=== PATIENT | female | born 1970 | race Hispanic/Latino ===

== ENCOUNTER 2017-11-12 17:48 | Emergency (ER) | payer OTHER ==
[2017-11-12 18:04] VITALS: BP 151/91; PULSE 76; TEMP 97.5; O2SAT 98
[2017-11-12 18:16] VITALS: RESP 20
--- NOTE | 2017-11-12 18:56 | ED PDOC ---
HPI: Back Time Seen by Provider: 11/12/17 18:40 Chief Complaint (Nursing): Shortness Of Breath Chief Complaint (Provider): uppper back pain History Per: Patient History/Exam Limitations: no limitations Onset/Duration Of Symptoms: Hrs Current Symptoms Are (Timing): Still Present Quality Of Discomfort: "Pain" Exacerbating Factor(s): Movement, Other (deep breaths) Additional History Per: Patient Additional Complaint(s): 47 y/o female history of hypertension, depression presents with left upper back pain x 7 hours. Associated shortness of breath. Pain worsened by movement and deep breaths, little improvement with Tylenol. Denies fever, cough, congestion , chest pain, palpitations, abdominal pain, leg pain/swelling. Patient with recent travel to [place] and [place] within the last month. Past Medical History Reviewed: Historical Data, Nursing Documentation, Vital Signs Vital Signs: Last Vital Signs Temp 97.5 F L 11/12/17 18:01 Pulse 76 11/12/17 18:01 Resp 20 11/12/17 18:11 BP 151/91 H 11/12/17 18:01 Pulse Ox 98 11/12/17 18:01 - Medical History PMH: HTN - Surgical History Surgical History: Cholecystectomy, - Family History Family History: States: No Known Family Hx - Living Arrangements Living Arrangements: With Family - Social History Current smoker - smoking cessation education provided: Yes Alcohol: Social Drugs: Denies - Home Medications Home Medications: Ambulatory Orders Medication Instructions Recorded Cyclobenzaprine [Cyclobenzaprine 10 mg PO BID PRN #14 tab 11/12/17 HCl] Naproxen [Naprosyn] 500 mg PO Q12 PRN #20 tablet 11/12/17 - Allergies Allergies/Adverse Reactions: Allergies Allergy/AdvReac Type Severity Reaction Status Date / Time shrimp Allergy RASH Verified 11/12/17 18:01 Review of Systems ROS Statement: Except As Marked, All Systems Reviewed And Found Negative Respiratory: Positive for: Shortness of Breath Musculoskeletal: Positive for: Back Pain Physical Exam - Reviewed Nursing Documentation Reviewed: Yes Vital Signs Reviewed: Yes - Physical Exam Appears: Positive for: Well, Non-toxic, No Acute Distress Head Exam: Positive for: ATRAUMATIC, NORMAL INSPECTION, NORMOCEPHALIC Skin: Positive for: Normal Color Eye Exam: Positive for: Normal appearance ENT: Positive for: Normal ENT Inspection Cardiovascular/Chest: Positive for: Regular Rate, Rhythm Respiratory: Positive for: Normal Breath Sounds Gastrointestinal/Abdominal: Positive for: Normal Exam Back: Positive for: Normal Inspection, Muscle Spasm (tender to palpate left tspine paraspinals). Negative for: L CVA Tenderness, R CVA Tenderness, Vertebral Tenderness, Decreased ROM Extremity: Positive for: Normal ROM Neurologic/Psych: Positive for: Alert, Oriented - Laboratory Results Result Diagrams: 11/12/17 19:31 11/12/17 19:31 - ECG ECG: Positive for: Viewed By Me (reviewed by ED attending) ECG Rhythm: Positive for: Sinus Rhythm O2 Sat by Pulse Oximetry: 98 Pulse Ox Interpretation: Normal - Radiology X-Ray: Viewed By Me X-Ray Interpretation: No Acute Disease - Progress ED Course And Treament: labs, ekg, chest xray, IV toradol, PO flexeril On re-eval, patient resting comfortably. Patient educated on findings, discharged with rx naproxen, flexeril. Advised follow up PMD 2-3 days. Return precautions given. Disposition - Clinical Impression Clinical Impression: Upper back pain on left side - Patient ED Disposition Is Patient to be Admitted: No Counseled Patient/Family Regarding: Studies Performed, Diagnosis, Need For Followup - Disposition Disposition: Routine/Home Disposition Time: 21:29 Condition: IMPROVED Prescriptions: Cyclobenzaprine [Cyclobenzaprine HCl] 10 mg PO BID PRN #14 tab PRN Reason: Muscle Spasm Naproxen [Naprosyn] 500 mg PO Q12 PRN #20 tablet PRN Reason: Pain, Moderate (4-7) Instructions: Back Pain (ED) Forms: [facility] (Azeri)
[2017-11-12 19:38] LABS: BASO # 0.1 K/uL (0.0-0.2); BASO % 1.1 % (0.0-2.0); EOS # 0.2 K/uL (0.0-0.7); EOS % 4.4 % (0.0-4.0); HEMATOCRIT 37.7 % (34.0-47.0); LYMPH # 1.6 K/uL (1.0-4.3); MEAN CELL VOLUME 94.8 fl (81.0-99.0); MEAN CORPUSCULAR HEMOGLOBIN 32.1 pg (27.0-31.0); MEAN CORPUSCULAR HGB CONC 33.9 g/dL (33.0-37.0); MEAN PLATELET VOLUME 7.8 fl (7.2-11.7); MONO # 0.6 K/uL (0.0-0.8); MONO % 11.2 % (0.0-10.0); NEUT % 54.3 % (50.0-75.0); NRBC % 0.1 % (0.0-0.0); RED CELL DISTRIBUTION WIDTH 13.4 % (11.5-14.5); WHITE BLOOD COUNT 5.6 K/uL (4.8-10.8)
[2017-11-12 19:46] LABS: ALB/GLOB RATIO 1.3 (1.0-2.1); ALKALINE PHOSPHATASE 51 U/L (38-126); ALT/SGPT 31 U/L (9-52); AST/SGOT 23 U/L (14-36); BILIRUBIN,TOTAL 0.3 mg/dl (0.2-1.3); BLOOD UREA NITROGEN 23 mg/dl (7-17); CALCIUM 9.2 mg/dL (8.4-10.2); CARBON DIOXIDE 24 mmol/L (22-30); CHLORIDE 106 mmol/L (98-107); GFR AFRICAN-AMERICAN > 60; GLUCOSE,RANDOM 105 mg/dL (65-105); POTASSIUM 4.1 MMOL/L (3.6-5.0); SODIUM 139 mmol/l (132-148); TOTAL PROTEIN 7.1 G/DL (6.3-8.2)
--- NOTE | 2017-11-13 07:56 | RAD ---
HISTORY: left upper back pain, sob COMPARISON: Chest radiographs 02/25/2013 TECHNIQUE: Chest PA and lateral FINDINGS: LUNGS: No active pulmonary disease. PLEURA: No significant pleural effusion identified. No pneumothorax apparent. CARDIOVASCULAR: Normal. OSSEOUS STRUCTURES: No significant abnormalities. VISUALIZED UPPER ABDOMEN: LAP band in position once again. OTHER FINDINGS: None. IMPRESSION: No interval acute cardiopulmonary disease appreciated.
== END 2017-11-12 21:51 | disposition home or self-care (01) ==
LOC: H.ER 17:48
DX: M54.9 Dorsalgia, unspecified (principal); F32.9 Major depressive disorder, single episode, unspecified; F17.200 Nicotine dependence, unspecified, uncomplicated
CPT/HCPCS: 71020; 80053; 81025; 85025; 85378; 85610; 85730; 96374; 99283; J1885

== ENCOUNTER 2018-10-06 09:35 | Emergency (ER) | payer OTHER ==
[2018-10-06 09:46] VITALS: BMI 41.8
--- NOTE | 2018-10-06 11:18 | RAD ---
Date of service: 10/06/2018 PROCEDURE: Right Ankle Radiographs. HISTORY: trauma COMPARISON: None available. FINDINGS: BONES: Three views of the right ankle were performed for right ankle pain and trauma. No fracture is seen. No ankle mortise widening is noted. No lytic process is identified. Talar dome is normal in outline. Subtalar joint is unremarkable. Small curvilinear chronic ossification is seen along the posterior tibial plafond region representing prior chronic trauma or ununited ossicle. Calcaneus is intact. Mild soft tissue swelling is seen. JOINTS: See above. SOFT TISSUES: See above. OTHER FINDINGS: None. IMPRESSION: No fracture. Mild soft tissue swelling consistent with ankle sprain.
--- NOTE | 2018-10-06 11:19 | RAD ---
Date of service: 10/06/2018 PROCEDURE: Right Foot Radiographs. HISTORY: trauma COMPARISON: None. FINDINGS: BONES: Three views of the right foot were performed. There is evidence of a fracture of the proximal aspect of the right 5th metatarsal. No other fractures are identified. Mild degenerative changes are identified. JOINTS: Unremarkable. SOFT TISSUES: Mild soft tissue swelling along the lateral foot. OTHER FINDINGS: None. IMPRESSION: Fracture proximal right 5th metatarsal.
[2018-10-06] MEDS ORDERED: Oxycodone/Acetaminophen 5/325 mg Tab PO STA (11:39)
[2018-10-06] MEDS ORDERED: Oxycodone/Acetaminophen 5/325 mg Tab ONE (11:42)
--- NOTE | 2018-10-06 11:51 | CP.PCM.CON ---
History of Present Illness - History of Present Illness History of Present Illness: Podiatry Consult Note: Dr. Campa 48F patient, with PMHx of HTN, seen and evaluated for R foot pain after twisting her ankle yesterday. Patient states that she was walking in high heels last night and rolled her ankle. At that time, she was immediately felt pain to the outside of her foot and to the inside of her ankle. She currently is able to ambulate, however experiences pain when walking. She denies any other pedal complaints at this time. Patient notes that she was a patient of Dr. Cueva in the past. She denies N/V/F/SOB/CP. PMHx: HTN SHx: tobacco use All: NDKA Review of Systems - Review of Systems Review of Systems: As per HPI Past Patient History - Past Social History Smoking Status: Former Smoker - CARDIAC Hx Hypertension: Yes - PSYCHIATRIC Hx Depression: Yes Hx Substance Use: No - SURGICAL HISTORY Hx Section: Yes (x3) Hx Cholecystectomy: Yes Hx Gastric Bypass Surgery: Yes - ANESTHESIA Hx Anesthesia: Yes Hx Anesthesia Reactions: No Meds Home Medications: Home Medication List Medication Instructions Recorded Confirmed Type Tramadol HCl [Ultram] 1 - 2 tab PO BID PRN #14 tablet 10/06/18 Rx Allergies/Adverse Reactions: Allergies Allergy/AdvReac Type Severity Reaction Status Date / Time shrimp Allergy RASH Verified 10/06/18 09:55 Physical Exam - Constitutional Appears: Well, Non-toxic, No Acute Distress - Head Exam Head Exam: ATRAUMATIC, NORMOCEPHALIC - Extremities Exam Additional comments: RLE focused exam Vascular: DP/PT 2/4, CFT <3 seconds to all digits, TG warm to warm, +1 edema noted to medial aspect of ankle joint and base of 5th metatarsal Ortho: Tenderness to palpation of base of R 5th metatarsal, pain with AROM and PROM, MMT 4/5 due to patient guarding Neuro: Gross and protective sensation intact Derm: No open lesions, erythema and ecchymosis noted to lateral aspect of R foot, no clinical signs of infection - Neurological Exam Neurological exam: Alert - Psychiatric Exam Psychiatric exam: Normal Affect, Normal Mood - Skin Skin Exam: Warm Results - Vital Signs Recent Vital Signs: Last Vital Signs Temp 98.5 F 10/06/18 09:46 Pulse 80 10/06/18 09:46 Resp 20 10/06/18 09:46 BP 136/81 10/06/18 09:46 Pulse Ox 97 10/06/18 09:46 Assessment & Plan - Assessment and Plan (Free Text) Assessment: 48F patient, with PMHx of HTN, with R 5th metatarsal base fracture Plan: Patient seen and evaluated with all questions and concerns addressed R ankle and foot x-rays taken; fracture at proximal aspect of 5th metatarsal bone Patient placed in posterior splint to RLE and instructed to remain NWB Instructed to leave splint C/D/I Informed patient importance of icing behind knee and elevating RLE Patient to follow up in Dr. Cueva's office within the week Thank you for the consult - Date & Time Date: 10/06/18 Time: 13:41
--- NOTE | 2018-10-06 11:57 | ED PDOC ---
Lower Extremity Pain/Injury Time Seen by Provider: 10/06/18 10:16 Chief Complaint (Nursing): Lower Extremity Problem/Injury History Per: Patient Additional Complaint(s): Pt. states last night she tripped and fell injuring her R foot/ankle while wearing high heels. Took Advil last night without relief. Denies numbness, tingling, other injury. PMD: [place] Past Medical History Reviewed: Historical Data, Nursing Documentation, Vital Signs Vital Signs: Last Vital Signs Temp 98.5 F 10/06/18 09:46 Pulse 80 10/06/18 09:46 Resp 20 10/06/18 09:46 BP 136/81 10/06/18 09:46 Pulse Ox 97 10/06/18 09:46 - Medical History PMH: Depression, HTN - Surgical History Surgical History: Cholecystectomy, - Family History Family History: States: No Known Family Hx - Home Medications Home Medications: Ambulatory Orders Medication Instructions Recorded Cyclobenzaprine [Cyclobenzaprine 10 mg PO BID PRN #14 tab 11/12/17 HCl] RX: Naproxen [Naprosyn] 500 mg PO Q12 PRN #20 tablet 11/12/17 Tramadol HCl [Ultram] 1 - 2 tab PO BID PRN #14 tablet 10/06/18 - Allergies Allergies/Adverse Reactions: Allergies Allergy/AdvReac Type Severity Reaction Status Date / Time shrimp Allergy RASH Verified 10/06/18 09:55 Review of Systems ROS Statement: Except As Marked, All Systems Reviewed And Found Negative Musculoskeletal: Positive for: Foot Pain Physical Exam - Physical Exam Appears: Positive for: Well, Non-toxic, No Acute Distress Skin: Positive for: Normal Color, Warm. Negative for: Rash Eye Exam: Positive for: Normal appearance Pulses-Dorsalis Pedis (L): 2+ Pulses-Dorsalis Pedis (R): 2+ Extremity: Positive for: Other (R ankle with tenderness to both malleoli without deformity; R foot with tenderness to lateral surface; no break in skin integrity of R foot/ankle; no achilles tendon tenderness or deformity) Neurologic/Psych: Positive for: Alert, Oriented (x3) - ECG O2 Sat by Pulse Oximetry: 97 - Radiology X-Ray: Interpreted by Me (R ankle/foot x-ray) X-Ray Interpretation: Other (non-displaced fx at the base of the proximal 5th MTP ) - Progress ED Course And Treament: Ankle x-rays, percocet 2 tabs PO ordered. Pt.'s devulcanizer charger is Dr. Cueva. Pt. prefers to use Dr. Cueva as her devulcanizer charger. Pt. evaluated by [facility] podiat[facility] resident, who spoke with Dr. Cueva and splinted pt. in ED and arranged f/u. Disposition - Clinical Impression Clinical Impression: Foot fracture - Patient ED Disposition Is Patient to be Admitted: No - Disposition Referrals: William Cueva MD [Staff Provider] - Disposition: Routine/Home Disposition Time: 12:05 Condition: STABLE Additional Instructions: FOLLOW UP WITH DR. CUEVA TOMORROW WITHOUT FAIL RETURN TO ED IMMEDIATELY IF SYMPTOMS WORSEN WALESKA OSORIO, thank you for letting us take care of you today. Your provider was Ariane Andersen MD and you were treated for rt ankle injury. The emergency m edical care you received today was directed at your acute symptoms. If you were prescribed any medication, please fill it and take as directed. It may take several days for your symptoms to resolve. Return to the Emergency Department if your symptoms worsen, do not improve, or if you have any other problems. Please contact your doctor or call one of the physicians/clinics you have been referred to that are listed on the Patient Visit Information form that is included in your discharge packet. Bring any paperwork you were given at discharge with you along with any medications you are taking to your follow up visit. Our treatment cannot replace ongoing medical care by a primary care provider outside of the emergency department. Thank you for allowing the [facility] team to be part of your care today. If you had an X-Ray or CT scan: A Radiologist will review the ED reading if any change in treatment is needed we will contact you. If you had a blood, urine, or wound culture: It will take several days for the results, if any change in treatment is needed we will contact you. If you had an STI test: It will take 48 hours for the results. Please call after 1 week if you have not heard back. Prescriptions: Tramadol HCl [Ultram] 1 - 2 tab PO BID PRN #14 tablet PRN Reason: Other Instructions: Foot Fracture (DC) Forms: [facility] (Persian), [facility] ED School/Work Excuse
[2018-10-06 12:28] VITALS: BP 130/78; PULSE 78; RESP 16; TEMP 98.2
[2018-10-06 19:36] VITALS: O2SAT 97
== END 2018-10-06 12:28 | disposition home or self-care (01) ==
LOC: H.ER 09:35
DX: S92.901A Unspecified fracture of right foot, initial encounter for closed fracture (principal); X50.9XXA Other and unspecified overexertion or strenuous movements or postures, initial encounter; Y92.480 Sidewalk as the place of occurrence of the external cause; I10 Essential (primary) hypertension